=== PATIENT | male | born 1965 | race Caucasian/White ===

== ENCOUNTER 2020-11-15 11:08 | Emergency (ER) | payer OTHER | END 2020-11-15 14:26 | disposition home or self-care (01) | LOC: CSHERS 11:08 | DX: H66.93 Otitis media, unspecified, bilateral (principal); E11.9 Type 2 diabetes mellitus without complications; I10 Essential (primary) hypertension; F17.210 Nicotine dependence, cigarettes, uncomplicated | CPT/HCPCS: 99282 ==

== ENCOUNTER 2021-09-14 18:59 | Inpatient (IN) | payer MEDICAID, OTHER ==
[2021-09-14 20:29] LABS: #Basophils 0.1 10x3/uL (0.0-0.2); #Eosinphils 0.1 10x3/uL (0.0-0.5); #Monocytes 0.4 10x3/uL (0.0-1.1); #Neutrophils 4.6 10x3/uL (1.5-8.4); %Basophils 1.1 % (0.0-2.0); %Eosinophils 1.8 % (0.0-6.0); %Lymphocytes 26.8 % (18.0-47.0); %Monocytes 5.3 % (0.0-10.0); %Neutrophils 64.9 % (40.0-75.0); Hemoglobin 16.9 g/dL (13.5-17.5); Mean Corpuscular HGB CONC 37.1 g/dL (32.0-36.0); Mean Corpuscular Hemoglobin 29.4 pg (27.0-33.0); Mean Corpuscular Volume 79.3 fl (81.2-95.1); Platelet Count 191 10x3/uL (150-450); Red Blood Cell (RBC) Count 5.74 10x6/uL (4.32-5.72)
[2021-09-14 20:40] LABS: ALT (SGPT) 19 U/L (8-55); AST (SGOT) 13 U/L (5-34); Albumin 4.2 g/dL (3.5-5.0); Alkaline Phosphatase 72 U/L (40-110); Anion Gap 15 mmol/L (10-20); BUN (Urea Nitrogen) 8 mg/dL (8.4-25.7); Bilirubin, Total 0.5 mg/dL (0.2-1.2); Calc. Creatinine Clearance 0 mL/min (70-130); Carbon Dioxide 24 mmol/L (22-29); Chloride 101 mmol/L (98-107); Globulin 2.4 g/dL (2.4-3.5); Glucose 436 mg/dL (70-105); Potassium 4.3 mmol/L (3.5-5.1); Protein, Total 6.6 g/dL (6.0-8.3); Sodium 136 mmol/L (136-145)
[2021-09-14 21:05] LABS: CKMB 1.8 ng/mL (0-6.6)
[2021-09-14] MEDS ORDERED: Aspirin Chewable 81 MG TAB ONE (21:28)
[2021-09-14] MEDS ORDERED: Metoprolol Tartrate 5 MG/5 ML VIAL ONE (21:28)
[2021-09-14] MEDS ORDERED: Enoxaparin Sodium 100 MG/ML SYRINGE ONE (21:28)
[2021-09-14] MEDS ORDERED: Nitroglycerin 2% Ointment 1 INCH/1 GM Packet ONE (21:29)
[2021-09-14] MEDS ORDERED: Dextrose 5% in Water 1,000 ML IV PRN (22:04)
[2021-09-14] MEDS ORDERED: Senokot S 8.6-50 MG TAB PO PRN (22:04)
[2021-09-14] MEDS ORDERED: Acetaminophen 325 MG TAB PO PRN (22:04)
[2021-09-14] MEDS ORDERED: Calcium Carbonate 500 MG ChewTAB PO PRN (22:04)
[2021-09-14] MEDS ORDERED: HYDROcodone/Acetaminophen 5/325 mg Tablet PO PRN (22:04)
[2021-09-14] MEDS ORDERED: Zolpidem Tartrate 5 MG TAB PO PRN (22:04)
[2021-09-14] MEDS ORDERED: Dextrose 50% Abboject 50 ML SYRINGE SLOW IVP PRN (22:04)
[2021-09-14] MEDS ORDERED: Guaifenesin DM 100-10/5 ML UDCUP PO PRN (22:04)
[2021-09-14] MEDS ORDERED: HumaLOG 300 UNITS/3 ML VIAL SC PRN (22:04)
[2021-09-14] MEDS ORDERED: Ondansetron PF 4 MG/2 ML Vial IVP PRN (22:04)
[2021-09-14] MEDS ORDERED: Nitroglycerin 0.4 MG TAB (25 Tab Bottle) SL PRN (22:04)
[2021-09-14] MEDS ORDERED: Labetalol HCl 100 MG/20 ML VIAL SLOW IVP PRN (22:08)
[2021-09-14 22:23] LABS: Amphetamine Not Detected (NotDetected); Barbiturates Screen Not Detected (NotDetected); Benzodiazepine Screen Not Detected (NotDetected); Cocaine Metabolite Screen Not Detected (NotDetected); Methadone Not Detected (NotDetected); Methamphetamine Not Detected (NotDetected); Opiate Screen Not Detected (NotDetected); Oxycodone Screen Not Detected (NotDetected); Phencyclidine (PCP) Not Detected (NotDetected); THC/Cannabinoid Screen Not Detected (NotDetected); Tricyclic Screen Not Detected (NotDetected)
[2021-09-14 23:06] LABS: SARS-CoV-2 NAA Rapid Test Not Detected (NotDetected)
[2021-09-14] MEDS ORDERED: HumaLOG 300 UNITS/3 ML VIAL ONE (23:19)
[2021-09-15 00:24] LABS: CKMB 1.3 ng/mL (0-6.6)
[2021-09-15 04:06] LABS: Anion Gap 16 mmol/L (10-20); BUN (Urea Nitrogen) 9 mg/dL (8.4-25.7); Calc. Creatinine Clearance 0 mL/min (70-130); Calcium 9.3 mg/dL (7.8-10.44); Carbon Dioxide 24 mmol/L (22-29); Cardiac Risk 5.3 (Less than 4.5); Chloride 104 mmol/L (98-107); Cholesterol 158 mg/dl (< 200 Desired); Glucose 103 mg/dL (70-105); HDL Cholesterol 30 mg/dL (>60 Neg Risk); LDL Cholesterol, Calculated 99 mg/dL; Sodium 140 mmol/L (136-145); Triglycerides 146 mg/dL (Less than 150)
[2021-09-15 04:31] LABS: CKMB 1.2 ng/mL (0-6.6)
[2021-09-15] MEDS ORDERED: Metoprolol Tartrate 25 MG TAB ONE (08:25)
[2021-09-15] MEDS ORDERED: Aspirin 81 mg Enteric Coated Tablet ONE (08:25)
[2021-09-15] MEDS ORDERED: metFORMIN 500 MG TAB ONE (08:26)
[2021-09-15] MEDS ORDERED: Lisinopril 10 MG TAB ONE (08:27)
[2021-09-15] MEDS ORDERED: Enoxaparin Sodium 100 MG/ML SYRINGE ONE (08:28)
[2021-09-15] MEDS: metFORMIN 500 MG TAB PO SCH ×2 (08:50→16:40)
[2021-09-15] MEDS ORDERED: Enoxaparin Sodium 100 MG/ML SYRINGE SC SCH (09:00)
[2021-09-15] MEDS ORDERED: Metoprolol Tartrate 25 MG TAB PO SCH (09:00)
[2021-09-15] MEDS ORDERED: Pregabalin 25 MG CAP PO SCH (09:00)
[2021-09-15] MEDS ORDERED: Aspirin Chewable 81 MG TAB PO SCH (09:00)
[2021-09-15] MEDS ORDERED: Lisinopril 2.5 MG TAB PO SCH (09:00)
[2021-09-15 10:39] VITALS: BMI 32.8
[2021-09-15 10:45] VITALS: TEMP 97.7
[2021-09-15 14:20] LABS: Hemoglobin A1c 13.2 % (4.0-6.0)
[2021-09-15 16:42] VITALS: BP 127/67
[2021-09-15] MEDS ORDERED: Atorvastatin Calcium 40 MG TAB PO SCH (21:00)
== END 2021-09-15 18:15 | disposition home or self-care (01) | DRG 638 ==
LOC: CSHERS 18:59 → CSHERHOLD 09-15 01:45 → CSHTELE 09-15 09:39
PROVIDERS: ADMIT Student in an Organized Health Care Education/Training Program; ATTEND Physician Assistant
DX: E11.65 Type 2 diabetes mellitus with hyperglycemia (principal); J90 Pleural effusion, not elsewhere classified; E78.5 Hyperlipidemia, unspecified; I10 Essential (primary) hypertension; F17.210 Nicotine dependence, cigarettes, uncomplicated; E11.42 Type 2 diabetes mellitus with diabetic polyneuropathy; Z20.822 Contact with and (suspected) exposure to COVID-19; Z91.19 Patient's noncompliance with other medical treatment and regimen; Z71.6 Tobacco abuse counseling; Z88.8 Allergy status to other drugs, medicaments and biological substances
CPT/HCPCS: 36415; 36416; 71045; 80048; 80053; 80061; 80306; 82553; 83036; 83880; 84484; 85025; 93005; 93306; 96372; 96374; J1650; J1815; U0002

== ENCOUNTER 2022-06-22 19:02 | Emergency (ER) | payer MEDICAID, OTHER ==
[2022-06-22] MEDS ORDERED: Ibuprofen 200 MG TAB ONE (19:37)
== END 2022-06-22 19:55 | disposition home or self-care (01) ==
LOC: CSHERS 19:02
DX: H65.92 Unspecified nonsuppurative otitis media, left ear (principal); E11.9 Type 2 diabetes mellitus without complications; I10 Essential (primary) hypertension; F17.210 Nicotine dependence, cigarettes, uncomplicated
CPT/HCPCS: 99282

== ENCOUNTER 2023-05-08 10:42 | Emergency (ER) | payer OTHER ==
[2023-05-08 12:08] LABS: #Basophils 0.1 10x3/uL (0.0-0.2); #Eosinphils 0.2 10x3/uL (0.0-0.5); #Monocytes 0.4 10x3/uL (0.0-1.1); #Neutrophils 4.7 10x3/uL (1.5-8.4); %Basophils 1.2 % (0.0-2.0); %Lymphocytes 25.7 % (18.0-47.0); %Monocytes 5.6 % (0.0-10.0); %Neutrophils 64.4 % (40.0-75.0); Hematocrit 52.2 % (38.8-50.0); Hemoglobin 18.6 g/dL (13.5-17.5); Mean Corpuscular HGB CONC 35.6 g/dL (32.0-36.0); Mean Corpuscular Hemoglobin 28.9 pg (27.0-33.0); Mean Corpuscular Volume 81.2 fl (81.2-95.1); Mean Platelet Volume 9.5 fl (7.4-10.4); Platelet Count 272 10x3/uL (150-450); RBC Distribution Width 12.3 % (11.5-14.5); Red Blood Cell (RBC) Count 6.43 10x6/uL (4.32-5.72); White Blood Cell (WBC) Count 7.3 10x3/uL (3.5-10.5)
[2023-05-08 12:26] LABS: ALT (SGPT) 21 U/L (8-55); AST (SGOT) 27 U/L (5-34); Albumin 4.5 g/dL (3.5-5.0); Alkaline Phosphatase 66 U/L (40-110); Anion Gap 17 mmol/L (10-20); BUN (Urea Nitrogen) 12 mg/dL (8.4-25.7); Bilirubin, Total 0.9 mg/dL (0.2-1.2); Calc. Creatinine Clearance 0 mL/min (70-130); Calcium 9.3 mg/dL (7.8-10.44); Carbon Dioxide 20 mmol/L (22-29); Chloride 102 mmol/L (98-107); Estimated GFR 85; Globulin 3.5 g/dL (2.4-3.5); Glucose 349 mg/dL (70-105); Potassium 4.6 mmol/L (3.5-5.1); Sodium 134 mmol/L (136-145)
== END 2023-05-08 13:14 | disposition home or self-care (01) ==
LOC: CSHERS 10:42
DX: Z76.0 Encounter for issue of repeat prescription (principal); I10 Essential (primary) hypertension; E11.65 Type 2 diabetes mellitus with hyperglycemia; E86.0 Dehydration; E11.40 Type 2 diabetes mellitus with diabetic neuropathy, unspecified; F17.210 Nicotine dependence, cigarettes, uncomplicated; Z79.84 Long term (current) use of oral hypoglycemic drugs; Z79.899 Other long term (current) drug therapy
CPT/HCPCS: 80053; 85025; 96360; 96361

== ENCOUNTER 2023-12-25 11:01 | Emergency (ER) | payer MEDICAID, OTHER, SELFPAY ==
[2023-12-25] MEDS ORDERED: Carvedilol 25 MG TAB ONE (12:18)
[2023-12-25] MEDS ORDERED: Carvedilol 6.25 MG TAB ONE (12:20)
== END 2023-12-25 12:30 | disposition home or self-care (01) ==
LOC: CSHERS 11:01
DX: Z76.0 Encounter for issue of repeat prescription (principal); E11.42 Type 2 diabetes mellitus with diabetic polyneuropathy; E11.40 Type 2 diabetes mellitus with diabetic neuropathy, unspecified; I10 Essential (primary) hypertension; F17.210 Nicotine dependence, cigarettes, uncomplicated
CPT/HCPCS: 93005; 99281

== ENCOUNTER 2024-01-31 09:52 | Emergency (ER) | payer MEDICAID ==
[2024-01-31 11:03] LABS: #Basophils 0.09 10x3/uL (0.0-0.2); #Eosinophils 0.46 10x3/uL (0.0-0.5); #Monocytes 0.57 10x3/uL (0.0-1.1); #Neutrophils 4.05 10x3/uL (1.5-8.4); %Basophils 1.3 % (0.0-2.0); %Eosinophils 6.5 % (0.0-6.0); %Lymphocytes 26.8 % (18.0-47.0); %Neutrophils 57.1 % (40.0-75.0); Hemoglobin 15.9 g/dL (13.5-17.5); Mean Corpuscular HGB CONC 34.6 g/dL (32.0-36.0); Mean Corpuscular Hemoglobin 29.4 pg (27.0-33.0); Mean Platelet Volume 9.2 fL (7.4-10.4); Platelet Count 218 10x3/uL (150-450); Red Blood Cell (RBC) Count 5.41 10x6/uL (4.32-5.72); White Blood Cell (WBC) Count 7.1 10x3/uL (3.5-10.5)
[2024-01-31 11:16] LABS: Prothrombin Time 10.7 sec (9.5-12.1)
[2024-01-31] MEDS ORDERED: Gabapentin 400 MG CAP PO SCH (12:15)
[2024-01-31 12:32] LABS: ALT (SGPT) 28 U/L (8-55); AST (SGOT) 21 U/L (5-34); Albumin 4.1 g/dL (3.5-5.0); Alkaline Phosphatase 48 U/L (40-110); Anion Gap 17 mmol/L (10-20); BUN (Urea Nitrogen) 16 mg/dL (8.4-25.7); Bilirubin, Total 0.4 mg/dL (0.2-1.2); Calc. Creatinine Clearance 0 mL/min (70-130); Calcium 9.5 mg/dL (7.8-10.44); Carbon Dioxide 21 mmol/L (22-29); Chloride 104 mmol/L (98-107); Estimated GFR 98; Globulin 2.8 g/dL (2.4-3.5); Glucose 121 mg/dL (70-105); Magnesium 2.4 mg/dL (1.6-2.6); Potassium 4.4 mmol/L (3.5-5.1); Protein, Total 6.9 g/dL (6.0-8.3); Sodium 138 mmol/L (136-145)
[2024-01-31 12:49] LABS: Troponin I Less than 0.010 ng/mL (< 0.028)
== END 2024-01-31 13:17 | disposition home or self-care (01) ==
LOC: CSHERS 09:52
DX: Z76.0 Encounter for issue of repeat prescription (principal); E11.42 Type 2 diabetes mellitus with diabetic polyneuropathy; I10 Essential (primary) hypertension; F17.210 Nicotine dependence, cigarettes, uncomplicated; Z95.1 Presence of aortocoronary bypass graft
CPT/HCPCS: 71045; 80053; 83735; 83880; 84484; 85025; 85610; 85730; 93005

== ENCOUNTER 2024-02-27 15:35 | Emergency (ER) | payer MEDICAID | END 2024-02-27 18:27 | disposition home or self-care (01) | LOC: CSHERS 15:35 | DX: Z76.0 Encounter for issue of repeat prescription (principal); C44.91 Basal cell carcinoma of skin, unspecified; E11.42 Type 2 diabetes mellitus with diabetic polyneuropathy; I10 Essential (primary) hypertension; F17.210 Nicotine dependence, cigarettes, uncomplicated | CPT/HCPCS: 99282 ==

== ENCOUNTER 2024-09-20 18:34 | Emergency (ER) | payer MEDICAID | END 2024-09-20 19:08 | disposition home or self-care (01) | LOC: CSHERS 18:34 | DX: Z76.0 Encounter for issue of repeat prescription (principal); I10 Essential (primary) hypertension; E11.9 Type 2 diabetes mellitus without complications; F17.210 Nicotine dependence, cigarettes, uncomplicated; Z95.1 Presence of aortocoronary bypass graft | CPT/HCPCS: 99281 ==

== ENCOUNTER 2025-03-11 13:37 | Emergency (ER) | payer MEDICAID | END 2025-03-11 14:48 | disposition home or self-care (01) | LOC: CSHERS 13:37 | DX: H66.92 Otitis media, unspecified, left ear (principal); T46.5X6A Underdosing of other antihypertensive drugs, initial encounter; E11.40 Type 2 diabetes mellitus with diabetic neuropathy, unspecified; I10 Essential (primary) hypertension; I25.10 Atherosclerotic heart disease of native coronary artery without angina pectoris; F17.290 Nicotine dependence, other tobacco product, uncomplicated; F17.210 Nicotine dependence, cigarettes, uncomplicated; Z91.148 Patient's other noncompliance with medication regimen for other reason; Z95.5 Presence of coronary angioplasty implant and graft; Z79.899 Other long term (current) drug therapy | CPT/HCPCS: 99282 ==